=== PATIENT | male | born 1935 | race Caucasian/White ===

== ENCOUNTER 2019-06-28 12:10 | Inpatient (IN) | payer OTHER, MEDICAID, BC ==
[~2019-06-28] VITALS: Ht 162.6 cm; Wt 69.4 kg
[2019-06-28 12:47] LABS: BASOPHILS # (AUTO) 0.1 K/uL (0.0-0.2); BASOPHILS % (AUTO) 1.2 % (0.0-2.0); EOSINOPHILS # (AUTO) 0.2 K/uL (0.0-0.4); EOSINOPHILS % (AUTO) 3.3 % (0.0-4.0); HEMATOCRIT 41.1 % (36-54); HEMOGLOBIN 13.8 g/dL (14.0-18.0); LYMPHOCYTES # (AUTO) 1.1 K/uL (1.0-5.5); LYMPHOCYTES % (AUTO) 24.4 % (20.5-51.5); MEAN CORPUSCULAR HEMOGLOBIN 31 pg (27-31); MEAN CORPUSCULAR HGB CONC 34 % (32-36); MEAN CORPUSCULAR VOLUME 93 fL (79.0-98.0); MONOCYTES # (AUTO) 0.3 K/uL (0.0-1.0); NEUTROPHILS % (AUTO) 65.1 % (40.0-70.0); PLATELET COUNT (AUTO) 194 K/uL (130-430); RED CELL DISTRIBUTION WIDTH 14.4 % (9.0-15.0); WHITE BLOOD COUNT (AUTO) 4.6 K/uL (4.8-10.8)
[2019-06-28 13:00] LABS: ANION GAP 5 (5-15); CALCIUM 8.4 mg/dL (8.4-11.0); CHLORIDE 103 mmol/L (98-107); CREATININE 0.87 mg/dL (0.55-1.30); GLUCOSE 138 mg/dL (70-99); POTASSIUM 3.8 mmol/L (3.5-5.1); SODIUM SERUM 140 mmol/L (136-145); UREA NITROGEN, BLOOD 8 mg/dL (8-21)
[2019-06-28 13:06] LABS: ALANINE AMINOTRANSFERASE 41 U/L (12-78); ALBUMIN 3.2 g/dL (3.4-4.8); ASPARTATE AMINOTRANSFERASE 22 U/L (10-37); TOTAL BILIRUBIN 0.5 mg/dL (0.0-1.0)
[2019-06-28 13:32] VITALS: BP_SYST 103
--- NOTE | 2019-06-28 13:43 | NUR ---
Patient triaged and placed in waiting room. VSS and patient appears in no acute distress at this time. Accompanied by daughters, awaiting available bed, and MD notified of need for MSE.
--- NOTE | 2019-06-28 14:14 | NUR ---
Patient to ER bed 03 to gown for evaluation. Side rails up.
--- NOTE | 2019-06-28 14:20 | NUR ---
JAIR Bobby at bedside examining patient.
--- NOTE | 2019-06-28 14:28 | NUR ---
Patient is awake, alert, and oriented x1. His daughters are at bedside. Per daughters, the patient has not had a BM in 2 days and his increased falls. Dr. Boyce directed them to bring him to the ER. Patient does not appear in any distress at this time.
[2019-06-28] MEDS ORDERED: LACTULOSE 20 GM/30 ML UDC PO ONE (14:30)
[2019-06-28] MEDS ORDERED: NACL 0.9% 1,000 ML IV ONE ×2 (14:30→15:45)
--- NOTE | 2019-06-28 14:53 | NUR ---
Patient transported to radiology via gurney, accompanied by urinalysis technician.
[2019-06-28 15:06] LABS: BILIRUBIN,URINE NEGATIVE (NEGATIVE); BLOOD, URINE NEGATIVE (NEGATIVE); CLARITY/URINE CLEAR (CLEAR); COLOR,URINE YELLOW (YELLOW); GLUCOSE,URINE NEGATIVE (NEGATIVE); KETONES,URINE NEGATIVE (NEGATIVE); LEUKOCYTE ESTERASE ,URINE NEGATIVE (NEGATIVE); NITRITE, URINE NEGATIVE (NEGATIVE); PROTEIN URINE NEGATIVE (NEGATIVE); UROBILINOGEN,URINE 0.2 (0.2-1.0)
[2019-06-28] MEDS ORDERED: ATEN-41 PO (15:18)
[2019-06-28] MEDS ORDERED: FURO-150 PO (15:18)
[2019-06-28] MEDS ORDERED: TAMS-11 PO (15:18)
[2019-06-28] MEDS ORDERED: DONE10TA44 PO (15:18)
[2019-06-28] MEDS ORDERED: MEMA28CA5 PO (15:18)
--- NOTE | 2019-06-28 15:21 | NUR ---
Medication reconciliation completed with information provided by daughters. Any prior medication reconciliation on file was reviewed and corrected.
--- NOTE | 2019-06-28 15:56 | NUR ---
Patient will be admitted to care of Dr. Boyce. Admitted to medsurg unit. Will go to room 104A. Belongings list completed. Complete and up to date summary report printed. SBAR report to be given at bedside with opportunity for questions.
--- NOTE | 2019-06-28 16:02 | NUR ---
Patient transported to radiology via gurney, accompanied by career guidance technician.
--- NOTE | 2019-06-28 16:11 | NUR ---
Returned from radiology, back to [facility].
--- NOTE | 2019-06-28 16:14 | NUR ---
Transfer to [facility]. EMT present. IV present no signs or symptoms of infiltration.
[2019-06-28 16:20] VITALS: BP_SYST 145
--- NOTE | 2019-06-28 16:20 | NUR ---
Admission: received from ER on a gurney accompanied by family with the diagnosis of Recurrent falls, Abdominal pain, fecal Impaction, Severe Neuropathy. patient is confused.
--- NOTE | 2019-06-28 16:30 | NUR ---
CONSULTATION PAGED/CALLED Reason for Consultation: RECURRENT FALLS Person Who was Notified: GISSELLE Consulting Physician: Proof Coins Inspector Specialty: Ordering Physician:
--- NOTE | 2019-06-28 16:30 | NUR ---
CONSULTATION PAGED/CALLED Reason for Consultation: CONSTIPATION Person Who was Notified: CALLUM Consulting Physician: Stopperer Assembler SpecialtY: Ordering Physician:
--- NOTE | 2019-06-28 17:20 | NUR ---
Received pt in bed, pt is awake but confused. able to vearbalize name but unable to say where he is at and date. pt is attempting to get out of bed and pulled out his iv access. Informed discharge coordinator that pt may be needing a sitter or needs to be restrained for safety as reorientation and telling pt not to pull out his iv and not to try to get out of bed for his safety did not work.
[2019-06-28] MEDS ORDERED: LORazepam 2 MG/ML VIAL IVP PRN (17:30)
[2019-06-28] MEDS: D5/0.45 NS 1,000 ML IV SCH (18:03)
--- NOTE | 2019-06-28 19:20 | NUR ---
Closing notes, Pt endorsed to night nurse amy. pt on restraint now, pt trying to pull out his restraint.
--- NOTE | 2019-06-28 19:30 | NUR ---
Initial Notes Received handoff report from offgoing nurse at the bedside. Patient is resting comfortably in bed, currently covered in bowel incontinence. Will provide incontinence care. No SOB, no acute distress, no complaints of pain. IVF infusing per MD order, see eMAR for details. Bed is locked, lowest position, 2x side rails up, bed alarm is on. Call light is within reach. Encouraged patient to call for assistance. Will continue with plan of care.
[2019-06-28 20:00] VITALS: BP_SYST 144
--- NOTE | 2019-06-28 20:00 | NUR ---
Incontinence care provided to the patient. Patient is now clean and dry, resting comfortably in bed.
[2019-06-28] MEDS: LACTULOSE 20 GM/30 ML UDC PO SCH (20:21)
--- NOTE | 2019-06-28 22:13 | NUR ---
Patient restless in bed, moving around a lot. Repositioned the patient for comfort. Now resting comfortably in bed.
--- NOTE | 2019-06-29 00:32 | NUR ---
Patient restless, kicked legs over the side rails. Assisted patient to reposition in the bed for comfort. Bed locked, lowest position, 2x side rails up, bed alarm is on. Call light within reach. Encouraged to call for assistance.
[2019-06-29 00:36] VITALS: BP_SYST 158
--- NOTE | 2019-06-29 02:35 | NUR ---
Patient removed all blankets and gown. Assisted patient to put clothing back on, and covered patient with blanket. Repositioned for comfort. Now resting comfortably in bed. Call light within reach. Encouraged patient to call for assistance.
--- NOTE | 2019-06-29 04:30 | NUR ---
Patient restless, kicking legs in bed. Repositioned patient for comfort. Now resting comfortably in bed.
--- NOTE | 2019-06-29 06:51 | NUR ---
Nutrition Update Armando Scale 17 noted. Pt admitted for Recurrent falls, Abd pain, fecal impaction Diet: no diet order BMI: 26.3 kg/m2 RD to follow per nutrition care standards.
--- NOTE | 2019-06-29 06:51 | NUR ---
Closing Notes Patient is resting comfortably in bed, eyes closed. Breathing even and unlabored with visible chest rise and fall noted. No SOB, no acute distress, no signs of pain or facial grimacing noted. IVF infusing per MD order, see eMAR for details. Bed is locked, lowest position, 2x side rails up, bed alarm is on. Call light is within reach. Fall and safety precautions maintained. All needs have been met during this shift. Will endorse care to oncoming dayshift nurse.
[2019-06-29 08:00] VITALS: BP_SYST 167
[2019-06-29] MEDS: DONEPEZIL HCL 5 MG TABLET (ARICEPT) PO SCH (10:16)
[2019-06-29] MEDS: ATENOLOL 25 MG TABLET(TENORMIN) PO SCH (10:17)
[2019-06-29] MEDS: LACTULOSE 20 GM/30 ML UDC PO SCH ×2 (10:18→22:47)
[2019-06-29] MEDS: FUROSEMIDE 20 MG TABLET PO SCH (10:18)
[2019-06-29 11:11] VITALS: BP_SYST 137
[2019-06-29] MEDS: D5/0.45 NS 1,000 ML IV SCH ×2 (13:23→22:48)
--- NOTE | 2019-06-29 15:00 | NUR ---
TAPE WATER ENEMA WAS GIVEN AT 14:30 . MOVED HUGE AMOUNT OF PASTY BM AT 15:00 , COLOR IN BROWN, ABDOMEN SOFT.
[2019-06-29 15:29] VITALS: BP_SYST 149
[2019-06-29 20:00] VITALS: BP_SYST 144
--- NOTE | 2019-06-29 22:25 | NUR ---
SOFT WRIST Restraints in place frequent monitor for safety PATIENT FALL RISK does pull on MEDICAL LINES TUBES .
[2019-06-29] MEDS: TAMSULOSIN HCL 0.4 MG CAP PO SCH (22:47)
[2019-06-29 23:52] VITALS: BP_SYST 147
--- NOTE | 2019-06-30 | NUR ---
Patient incontinent HOB kept elevated SAFETY MEASURES EFFECTIVE FALL PRECAUTION HX OF / .
--- NOTE | 2019-06-30 00:48 | NUR ---
Turning Repositioning off loading with pillows comfort measures implemented patient awake DOES PULL OUT MEDICAL LINES / .
--- NOTE | 2019-06-30 05:19 | NUR ---
BED SIDE CARE BED BATH Patient incontinent of B&B off loading with pillows SAFETY MEASURES EFFECTIVE .
--- NOTE | 2019-06-30 07:53 | NUR ---
INITIAL NOTE PT RESTING IN BED, NO ACUTE DISTRESS NOTED, BREATHING EVEN AND UNLABORED. IVF IN FUSING WELL. SOFT WRIST RESTRAINTS IN PLACE. CALL LIGHT WITHIN REACH, BED IN LOW AND LOCKED POSITION WITH BED ALARM ON.
[2019-06-30] MEDS: DONEPEZIL HCL 5 MG TABLET (ARICEPT) PO SCH (08:02)
[2019-06-30] MEDS: LACTULOSE 20 GM/30 ML UDC PO SCH ×2 (08:02→22:04)
[2019-06-30] MEDS: ATENOLOL 25 MG TABLET(TENORMIN) PO SCH (08:02)
[2019-06-30] MEDS: FUROSEMIDE 20 MG TABLET PO SCH (08:03)
--- NOTE | 2019-06-30 10:00 | NUR ---
RN ROUNDS PT RESTING IN BED, NO ACUTE DISTRESS NOTED, BREATHING EVEN AND UNLABORED.
--- NOTE | 2019-06-30 12:00 | NUR ---
RN ROUNDS PT IN HIGH FOWLERS. FAMILY AT BEDSIDE FEEDING PT. NO ACUTE DISTRESS NOTED.
[2019-06-30 12:46] VITALS: BP_SYST 158
--- NOTE | 2019-06-30 14:00 | NUR ---
RN ROUNDS PT RESTING IN BED, NO ACUTE DISTRESS NOTED, BREATHING EVEN AND UNLABORED.
--- NOTE | 2019-06-30 16:00 | NUR ---
RN ROUNDS REPOSITIONED PT FOR COMFORT. PT TOLERATED WELL. NO ACUTE DISTRESS NOTED.
[2019-06-30 16:51] VITALS: BP_SYST 144
--- NOTE | 2019-06-30 17:00 | NUR ---
assumed care, pt in bed, resting. No acute distress noted. on bilateral soft wrist restraints.
--- NOTE | 2019-06-30 18:40 | NUR ---
notes- In bed, awake. no acute distress noted. on soft wrist restraint, circulation intact. Will endorse
--- NOTE | 2019-06-30 19:10 | NUR ---
OPENING NOTES Receive report from morning shift nurse. Patient awake, AOx1, cooperative, able to follow simple commands, confusion is noted. No signs of respiratory distress and discomfort noted. On Room air with O2 sat of 100%, tolerating well. IVF infusing well, patency noted. Call light within reach. Safety precautions in place. Bed locked and in lowest position. Bed alarm on. 3 side rails up, close to nursing station. Will continue to monitor patient.
[2019-06-30 20:00] VITALS: BP_SYST 149
[2019-06-30] MEDS: TAMSULOSIN HCL 0.4 MG CAP PO SCH (22:04)
--- NOTE | 2019-06-30 22:04 | NUR ---
MED PASS Due medication given at this time, patient tolerated well. No signs of respiratory distress and discomfort noted. Denies pain and discomfort at this time. Safety precautions in place. Will continue to monitor patient.
--- NOTE | 2019-06-30 23:40 | NUR ---
RN ROUNDS Patient asleep at this time. No signs of respiratory distress and discomfort noted. Breathing even and unlabored. IVF infusing well, patency noted. Safety precautions in place. Bed alarm on. Call light within reach. Will continue to monitor patient.
[2019-07-01] MEDS: D5/0.45 NS 1,000 ML IV SCH (04:52)
--- NOTE | 2019-07-01 07:00 | NUR ---
CLOSING NOTES Patient asleep at this time, AOx1. No signs of respiratory distress and discomfort noted. On Room air with O2 sat of 100%, tolerating well. IVF infusing well, patency noted. Call light within reach. Safety precautions in place. Bed locked and in lowest position. Bed alarm on. 3 side rails up, close to nursing station. Will continue to monitor patient.
[2019-07-01 08:00] VITALS: BP_SYST 130
--- NOTE | 2019-07-01 08:00 | NUR ---
initial notes rec patient awake but confused . resp easy and unlabored. no sob noted. bed to the lowest position and side rails up and locked. pt close to the nurses station. call light within reached.
[2019-07-01] MEDS: LACTULOSE 20 GM/30 ML UDC PO SCH (09:19)
[2019-07-01] MEDS: ATENOLOL 25 MG TABLET(TENORMIN) PO SCH (09:20)
[2019-07-01] MEDS: FUROSEMIDE 20 MG TABLET PO SCH (09:21)
[2019-07-01] MEDS: DONEPEZIL HCL 5 MG TABLET (ARICEPT) PO SCH (09:22)
--- NOTE | 2019-07-01 10:30 | NUR ---
rounds due meds given and pepe well. resting comfortably and sleeps at intervals.
--- NOTE | 2019-07-01 10:50 | NUR ---
DC PLANNING Called & spoke wendie Persaud, ph [phone], to discuss dc plan. Has spoken wendie Lim, would like SNF for rehab. Informed had choices, states already knows which SNF she prefers. Would like pt to go to [facility] in [place], has already spoken with Edgardo @ [facility]. Has no 2nd choice, states to call her if not accepted/no beds. Addendum: 07/01/19 at 1604 by An Alvarenga RN Per Marii bernabener, pt accepted at [facility] room 12A, ambulance picking up @ 6pm. Spoke wendie Persaud & other family @ bedside & updated. All in agreement w roxanna today.
--- NOTE | 2019-07-01 11:45 | NUR ---
Discharge Planning: DCP faxed pt referral to [facility] p [phone]) DCP to follow up. Addendum: 07/01/19 at 1338 by Marii Oswald DP Per Maria Esther at [facility] p [phone]) patient accepted to [facility], DCP made CM aware. Addendum: 07/01/19 at 1555 by Marii Oswald DP [facility] p [phone]) 12A, [facility] ([phone]) 6:00pm P/U. Patient packet taken to nurse station.
[2019-07-01 12:29] VITALS: BP_SYST 137
[2019-07-01 16:32] VITALS: BP_SYST 131
[2019-07-01 17:31] VITALS: BP_SYST 131
--- NOTE | 2019-07-01 18:10 | NUR ---
closing notes pt left for [facility]. report given to jami shields at the said place. family at bedside with patient. id band and ivl was removed. pt stablr and needs attended. no sob noted.
--- NOTE | 2019-07-04 13:54 | NUR ---
PHYSICAL THERAPY CO-SIGN The Physical Therapy Progress Notes documented by Screw Remover have been reviewed. Reviewed/Co-Signed by: Jian Bermudez, PT Documentation Done by: SHELBIE KHAN PTA Addendum: 07/04/19 at 1355 by Jian Bermudez PT Amended: Links added.
== END 2019-07-01 18:10 | DRG 388 ==
LOC: SED 12:10 → SMU 15:51
PROVIDERS: ADMIT Internal Medicine; ATTEND Internal Medicine
DX: K56.41 Fecal impaction (principal); G92 Toxic encephalopathy; R64 Cachexia; E86.0 Dehydration; F02.80 Dementia in other diseases classified elsewhere, unspecified severity, without behavioral disturbance, psychotic disturbance, mood disturbance, and anxiety; G30.9 Alzheimer's disease, unspecified; I10 Essential (primary) hypertension; R29.6 Repeated falls; Z79.899 Other long term (current) drug therapy
CPT/HCPCS: 36415; 70450-TC; 71045; 71250-TC; 74018; 80053; 81003; 83605; 84484; 85025; 87040-TC; 87086; 93005; 96360; 96361; 97110-GP; 97530-GP; 99285; J7030

== ENCOUNTER 2019-07-26 14:55 | Inpatient (IN) | payer OTHER, MEDICAID ==
[~2019-07-26] VITALS: Ht 162.6 cm; Wt 64.9 kg
[~2019-07-26 14:55] MED LIST: ATEN-41 PO; DONE10TA44 PO; FURO-150 PO; MEMA28CA5 PO; TAMS-11 PO
[2019-07-26 15:00] VITALS: BP_SYST 126
[2019-07-26 16:19] LABS: BASOPHILS # (AUTO) 0.1 K/uL (0.0-0.2); BASOPHILS % (AUTO) 0.4 % (0.0-2.0); EOSINOPHILS # (AUTO) 0.1 K/uL (0.0-0.4); EOSINOPHILS % (AUTO) 0.3 % (0.0-4.0); HEMATOCRIT 38.4 % (36-54); HEMOGLOBIN 12.7 g/dL (14.0-18.0); LYMPHOCYTES # (AUTO) 1.5 K/uL (1.0-5.5); LYMPHOCYTES % (AUTO) 9.6 % (20.5-51.5); MEAN CORPUSCULAR HEMOGLOBIN 31 pg (27-31); MEAN CORPUSCULAR HGB CONC 33 % (32-36); MEAN CORPUSCULAR VOLUME 93 fL (79.0-98.0); MONOCYTES # (AUTO) 1.1 K/uL (0.0-1.0); MONOCYTES % (AUTO) 7.2 % (1.7-9.3); NEUTROPHILS % (AUTO) 82.5 % (40.0-70.0); PLATELET COUNT (AUTO) 196 K/uL (130-430); RED BLOOD CELL COUNT(AUTO) 4.11 MIL/uL (4.2-6.2); RED CELL DISTRIBUTION WIDTH 13.8 % (9.0-15.0); WHITE BLOOD COUNT (AUTO) 15.8 K/uL (4.8-10.8)
[2019-07-26 16:42] LABS: ANION GAP 8 (5-15); CALCIUM 8.1 mg/dL (8.4-11.0); CHLORIDE 104 mmol/L (98-107); CREATININE 1.14 mg/dL (0.55-1.30); GLUCOSE 112 mg/dL (70-99); POTASSIUM 3.7 mmol/L (3.5-5.1); SODIUM SERUM 142 mmol/L (136-145); UREA NITROGEN, BLOOD 16 mg/dL (8-21)
[2019-07-26 16:46] LABS: PROTHROMBIN TIME 10.2 SECS (9.5-12.5)
[2019-07-26 16:50] LABS: ALANINE AMINOTRANSFERASE 29 U/L (12-78); ALBUMIN 2.8 g/dL (3.4-4.8); ASPARTATE AMINOTRANSFERASE 37 U/L (10-37); TOTAL BILIRUBIN 0.5 mg/dL (0.0-1.0)
[2019-07-26] MEDS ORDERED: cefTRIAXone 1 GM IVPB PREMIX 50 ML IV ONE (18:30)
[2019-07-26] MEDS ORDERED: NACL 0.9% 1,000 ML IV ONE (18:30)
[2019-07-26 20:30] VITALS: BP_SYST 123
[2019-07-26] MEDS ORDERED: PIPERACILLIN/TAZOBACTAM 3.375 GM/VIAL (ZOSYN) IV ONE (21:07)
[2019-07-26] MEDS: PIPERACILLIN/TAZO 3.375/DEX-IS 50 ML IV SCH (22:24)
[2019-07-26] MEDS: D5/0.45 NS 1,000 ML IV SCH (22:24)
[2019-07-27] VITALS: BP_SYST 132
[2019-07-27] MEDS: D5/0.45 NS 1,000 ML IV SCH ×7 (02:31→22:31)
[2019-07-27] MEDS: PIPERACILLIN/TAZO 3.375/DEX-IS 50 ML IV SCH ×3 (05:10→22:52)
[2019-07-27 07:35] LABS: AMYLASE 85 U/L (0-100); LIPASE 199 U/L (73-393)
[2019-07-27 07:43] LABS: INR 1.1 (0.80-1.20)
[2019-07-27 08:35] VITALS: BP_SYST 118
[2019-07-27 12:45] VITALS: BP_SYST 107
[2019-07-27 16:44] VITALS: BP_SYST 110
[2019-07-27 20:00] VITALS: BP_SYST 124
[2019-07-27] MEDS: TAMSULOSIN HCL 0.4 MG CAP PO SCH (22:52)
[2019-07-28 00:13] VITALS: BP_SYST 119
[2019-07-28] MEDS: D5/0.45 NS 1,000 ML IV SCH ×5 (03:43→22:31)
[2019-07-28] MEDS: PIPERACILLIN/TAZO 3.375/DEX-IS 50 ML IV SCH ×3 (05:44→22:26)
[2019-07-28 06:36] LABS: BASOPHILS # (AUTO) 0.1 K/uL (0.0-0.2); BASOPHILS % (AUTO) 0.5 % (0.0-2.0); EOSINOPHILS # (AUTO) 0.3 K/uL (0.0-0.4); HEMATOCRIT 35.6 % (36-54); LYMPHOCYTES # (AUTO) 2.1 K/uL (1.0-5.5); LYMPHOCYTES % (AUTO) 19.1 % (20.5-51.5); MEAN CORPUSCULAR HEMOGLOBIN 32 pg (27-31); MEAN CORPUSCULAR HGB CONC 34 % (32-36); MEAN CORPUSCULAR VOLUME 94 fL (79.0-98.0); MONOCYTES # (AUTO) 0.8 K/uL (0.0-1.0); NEUTROPHILS # (AUTO) 7.6 K/uL (1.8-7.7); NEUTROPHILS % (AUTO) 70.4 % (40.0-70.0); PLATELET COUNT (AUTO) 171 K/uL (130-430); RED BLOOD CELL COUNT(AUTO) 3.79 MIL/uL (4.2-6.2); RED CELL DISTRIBUTION WIDTH 14.2 % (9.0-15.0); WHITE BLOOD COUNT (AUTO) 10.8 K/uL (4.8-10.8)
[2019-07-28 06:37] LABS: ALANINE AMINOTRANSFERASE 28 U/L (12-78); ALBUMIN 2.5 g/dL (3.4-4.8); ANION GAP 3 (5-15); ASPARTATE AMINOTRANSFERASE 28 U/L (10-37); CALCIUM 7.8 mg/dL (8.4-11.0); CHLORIDE 107 mmol/L (98-107); CREATININE 0.98 mg/dL (0.55-1.30); GLUCOSE 123 mg/dL (70-99); POTASSIUM 3.5 mmol/L (3.5-5.1); SODIUM SERUM 138 mmol/L (136-145); TOTAL BILIRUBIN 0.5 mg/dL (0.0-1.0); UREA NITROGEN, BLOOD 9 mg/dL (8-21)
[2019-07-28 08:45] VITALS: BP_SYST 112
[2019-07-28] MEDS: DONEPEZIL HCL 5 MG TABLET (ARICEPT) PO SCH (09:56)
[2019-07-28] MEDS: ATENOLOL 25 MG TABLET(TENORMIN) PO SCH (09:57)
[2019-07-28] MEDS: FUROSEMIDE 20 MG TABLET PO SCH (09:57)
[2019-07-28 12:36] VITALS: BP_SYST 129
[2019-07-28 16:30] VITALS: BP_SYST 136
[2019-07-28 20:00] VITALS: BP_SYST 145
[2019-07-28] MEDS: TAMSULOSIN HCL 0.4 MG CAP PO SCH (22:27)
[2019-07-28 23:53] VITALS: BP_SYST 151
[2019-07-29] MEDS: D5/0.45 NS 1,000 ML IV SCH ×7 (02:18→21:38)
[2019-07-29] MEDS: PIPERACILLIN/TAZO 3.375/DEX-IS 50 ML IV SCH ×3 (05:53→21:37)
[2019-07-29 08:17] VITALS: BP_SYST 152
[2019-07-29] MEDS: FUROSEMIDE 20 MG TABLET PO SCH (08:28)
[2019-07-29] MEDS: ATENOLOL 25 MG TABLET(TENORMIN) PO SCH (08:28)
[2019-07-29] MEDS: DONEPEZIL HCL 5 MG TABLET (ARICEPT) PO SCH (08:28)
[2019-07-29 12:35] VITALS: BP_SYST 156
[2019-07-29 16:35] VITALS: BP_SYST 145
[2019-07-29 20:00] VITALS: BP_SYST 146
[2019-07-29] MEDS: TAMSULOSIN HCL 0.4 MG CAP PO SCH (21:37)
[2019-07-30] VITALS: BP_SYST 142
[2019-07-30] MEDS: D5/0.45 NS 1,000 ML IV SCH ×4 (02:31→14:31)
[2019-07-30] MEDS: PIPERACILLIN/TAZO 3.375/DEX-IS 50 ML IV SCH (05:11)
[2019-07-30 07:42] VITALS: BP_SYST 148
[2019-07-30] MEDS: DONEPEZIL HCL 5 MG TABLET (ARICEPT) PO SCH (07:58)
[2019-07-30] MEDS: FUROSEMIDE 20 MG TABLET PO SCH (07:59)
[2019-07-30] MEDS: ATENOLOL 25 MG TABLET(TENORMIN) PO SCH (07:59)
[2019-07-30] MEDS ORDERED: LEVOFLOXACIN 250 MG/D5W 50 ML IV SCH (09:00)
[2019-07-30 12:49] VITALS: BP_SYST 112
[2019-07-30 16:32] VITALS: BP_SYST 148
[2019-07-30 17:28] VITALS: BP_SYST 122
== END 2019-07-30 19:10 | DRG 871 ==
LOC: SED 14:55 → SMU 18:31
PROVIDERS: ADMIT Internal Medicine; ATTEND Internal Medicine
DX: A41.9 Sepsis, unspecified organism (principal); J18.9 Pneumonia, unspecified organism; G93.40 Encephalopathy, unspecified; E87.2 Acidosis; F02.80 Dementia in other diseases classified elsewhere, unspecified severity, without behavioral disturbance, psychotic disturbance, mood disturbance, and anxiety; G30.9 Alzheimer's disease, unspecified; I10 Essential (primary) hypertension; N40.0 Benign prostatic hyperplasia without lower urinary tract symptoms; Z79.899 Other long term (current) drug therapy
CPT/HCPCS: 36415; 71045; 80053; 82150-TC; 83605; 83690-TC; 83880; 84484; 85025; 85610-TC; 85730-TC; 86710; 87040-TC; 87081; 87086; 93005; 96365; 99285; J0696; J1956; J2543; J7030

== ENCOUNTER 2020-03-19 15:31 | Inpatient (IN) | payer OTHER, BC, SELFPAY ==
[~2020-03-19] VITALS: Ht 162.6 cm; Wt 60.3 kg
[2020-03-19 15:33] VITALS: BP_SYST 106
[2020-03-19] MEDS ORDERED: cefTRIAXone 1 GM IVPB PREMIX 50 ML IV ONE (16:15)
[2020-03-19] MEDS ORDERED: NS 1000 ML IV.SOLN IV ONE (16:15)
[2020-03-19 16:44] LABS: BASOPHILS # (AUTO) 0.1 K/uL (0.0-0.2); BASOPHILS % (AUTO) 0.6 % (0.0-2.0); EOSINOPHILS # (AUTO) 0.1 K/uL (0.0-0.4); EOSINOPHILS % (AUTO) 0.4 % (0.0-4.0); HEMATOCRIT 39.2 % (36-54); LYMPHOCYTES # (AUTO) 0.9 K/uL (1.0-5.5); LYMPHOCYTES % (AUTO) 5.8 % (20.5-51.5); MEAN CORPUSCULAR HEMOGLOBIN 30 pg (27-31); MEAN CORPUSCULAR HGB CONC 33 % (32-36); MEAN CORPUSCULAR VOLUME 90 fL (79.0-98.0); MONOCYTES # (AUTO) 0.7 K/uL (0.0-1.0); MONOCYTES % (AUTO) 4.3 % (1.7-9.3); NEUTROPHILS # (AUTO) 14.3 K/uL (1.8-7.7); NEUTROPHILS % (AUTO) 88.9 % (40.0-70.0); PLATELET COUNT (AUTO) 145 K/uL (130-430); RED BLOOD CELL COUNT(AUTO) 4.38 MIL/uL (4.2-6.2); RED CELL DISTRIBUTION WIDTH 14.7 % (9.0-15.0)
[2020-03-19 16:45] LABS: BILIRUBIN,URINE NEGATIVE (NEGATIVE); BLOOD, URINE NEGATIVE (NEGATIVE); CLARITY/URINE SL CLOUDY (CLEAR); COLOR,URINE YELLOW (YELLOW); GLUCOSE,URINE NEGATIVE (NEGATIVE); KETONES,URINE NEGATIVE (NEGATIVE); LEUKOCYTE ESTERASE ,URINE NEGATIVE (NEGATIVE); NITRITE, URINE NEGATIVE (NEGATIVE); PH,URINE 5.5 (5.0-8.0); PROTEIN URINE 2+ (NEGATIVE)
[2020-03-19 17:00] LABS: ANION GAP 3 (5-15); CALCIUM 8.7 mg/dL (8.4-11.0); CHLORIDE 108 mmol/L (98-107); CREATININE 1.29 mg/dL (0.55-1.30); GLUCOSE 219 mg/dL (70-99); POTASSIUM 3.6 mmol/L (3.5-5.1); SODIUM SERUM 141 mmol/L (136-145); UREA NITROGEN, BLOOD 23 mg/dL (8-21)
[2020-03-19 17:04] LABS: BACTERIA,URINE None Seen /HPF (None Seen); RBC,URINE NONE SEEN /HPF (0-3); WBC,URINE NONE SEEN /HPF (0-3)
[2020-03-19 17:11] LABS: ALANINE AMINOTRANSFERASE 19 U/L (12-78); ALBUMIN 2.5 g/dL (3.4-4.8); ASPARTATE AMINOTRANSFERASE 14 U/L (10-37); TOTAL BILIRUBIN 0.6 mg/dL (0.0-1.0)
[2020-03-19] MEDS ORDERED: ASCO500T10 PO (17:37)
[2020-03-19] MEDS ORDERED: VITD2000 PO (17:37)
[2020-03-19] MEDS ORDERED: SENN8.6T19 PO (17:37)
[2020-03-19] MEDS ORDERED: DONE10TA44 PO (17:37)
[2020-03-19] MEDS ORDERED: TAMS-11 PO (17:37)
[2020-03-19] MEDS ORDERED: ZINC220T4 PO (17:37)
[2020-03-19] MEDS ORDERED: FURO-150 PO (17:37)
[2020-03-19] MEDS ORDERED: CYAN100020 SL (17:37)
[2020-03-19] MEDS ORDERED: ATEN-41 PO (17:37)
[2020-03-19] MEDS ORDERED: D5/0.45 NS 1,000 ML IV SCH (18:13)
[2020-03-19 20:54] VITALS: BP_SYST 148
[2020-03-20] VITALS: BP_SYST 151
[2020-03-20] MEDS: AZITHROMYCIN 500 MG in NS 250 ML IV ONE ×2 (01:30→02:46)
[2020-03-20] MEDS: AZITHROMYCIN 500 MG/VIAL (ZITHROMAX) IV ONE ×2 (02:07→02:46)
[2020-03-20] MEDS: 0.45% NACL 1,000 ML IV SCH ×2 (02:30→21:21)
[2020-03-20] MEDS: AZITHROMYCIN 250 MG in NS 250 ML IV SCH (02:30)
[2020-03-20 08:52] VITALS: BP_SYST 117
[2020-03-20] MEDS ORDERED: CHOLECALCIFEROL (VITAMIN D3) 2,000 UNIT TABLET PO SCH (10:45)
[2020-03-20] MEDS ORDERED: CHOLECALCIFEROL (VITAMIN D3) 2,000 UNIT TABLET PO ONE (10:45)
[2020-03-20] MEDS ORDERED: ASCORBIC ACID 500 MG TABLET PO ONE (10:45)
[2020-03-20] MEDS ORDERED: ATENOLOL 25 MG TABLET(TENORMIN) PO ONE (10:45)
[2020-03-20] MEDS ORDERED: DONEPEZIL HCL 5 MG TABLET (ARICEPT) PO ONE (10:45)
[2020-03-20] MEDS ORDERED: FUROSEMIDE 20 MG TABLET PO ONE (11:00)
[2020-03-20] MEDS ORDERED: CYANOCOBALAMIN 1000 mCg TABLET SL ONE (11:00)
[2020-03-20 12:00] VITALS: BP_SYST 123
[2020-03-20] MEDS: cefTRIAXone 1 GM IVPB PREMIX 50 ML IV SCH ×2 (15:00→17:00)
[2020-03-20 16:00] VITALS: BP_SYST 127
[2020-03-20 20:00] VITALS: BP_SYST 132
[2020-03-20] MEDS: ASCORBIC ACID 500 MG TABLET PO SCH (20:39)
[2020-03-20] MEDS: TAMSULOSIN HCL 0.4 MG CAP PO SCH (20:39)
[2020-03-20] MEDS: DONEPEZIL HCL 5 MG TABLET (ARICEPT) PO SCH (20:39)
[2020-03-20] MEDS: SENNOSIDES 8.6 MG TABLET PO SCH (20:39)
[2020-03-20] MEDS: CHOLECALCIFEROL (VITAMIN D3) 2,000 UNIT TABLET PO SCH (20:39)
[2020-03-21] VITALS: BP_SYST 137
[2020-03-21] MEDS: AZITHROMYCIN 250 MG in NS 250 ML IV SCH ×2 (01:35→01:43)
[2020-03-21] MEDS ORDERED: AZITHROMYCIN 500 MG/VIAL (ZITHROMAX) IV ONE (01:58)
[2020-03-21 04:00] VITALS: BP_SYST 136
[2020-03-21 07:50] VITALS: BP_SYST 137
[2020-03-21] MEDS: DONEPEZIL HCL 5 MG TABLET (ARICEPT) PO SCH ×2 (08:36→21:16)
[2020-03-21] MEDS ORDERED: FUROSEMIDE 20 MG TABLET PO SCH (09:00)
[2020-03-21] MEDS: CHOLECALCIFEROL (VITAMIN D3) 2,000 UNIT TABLET PO SCH ×2 (09:20→21:16)
[2020-03-21] MEDS: ASCORBIC ACID 500 MG TABLET PO SCH ×2 (09:20→21:16)
[2020-03-21] MEDS: CYANOCOBALAMIN 1000 mCg TABLET SL SCH (09:20)
[2020-03-21] MEDS: ATENOLOL 25 MG TABLET(TENORMIN) PO SCH (09:20)
[2020-03-21] MEDS: ENOXAPARIN SODIUM 40 MG/0.4 ML SYRINGE SUBCUT SCH (09:23)
[2020-03-21 12:00] VITALS: BP_SYST 133
[2020-03-21] MEDS: cefTRIAXone 1 GM IVPB PREMIX 50 ML IV SCH (15:45)
[2020-03-21 16:00] VITALS: BP_SYST 132
[2020-03-21] MEDS: TAMSULOSIN HCL 0.4 MG CAP PO SCH (21:16)
[2020-03-21] MEDS: SENNOSIDES 8.6 MG TABLET PO SCH (21:16)
[2020-03-21 22:00] VITALS: BP_SYST 151
[2020-03-21] MEDS: 0.45% NACL 1,000 ML IV SCH (22:07)
[2020-03-22] VITALS: BP_SYST 145
[2020-03-22 06:46] LABS: BASOPHILS % (AUTO) 0.9 % (0.0-2.0); EOSINOPHILS # (AUTO) 0.3 K/uL (0.0-0.4); EOSINOPHILS % (AUTO) 6.6 % (0.0-4.0); HEMATOCRIT 38.1 % (36-54); HEMOGLOBIN 13.1 g/dL (14.0-18.0); LYMPHOCYTES # (AUTO) 1.2 K/uL (1.0-5.5); LYMPHOCYTES % (AUTO) 22.7 % (20.5-51.5); MEAN CORPUSCULAR HEMOGLOBIN 30 pg (27-31); MEAN CORPUSCULAR HGB CONC 34 % (32-36); MEAN CORPUSCULAR VOLUME 88 fL (79.0-98.0); MONOCYTES # (AUTO) 0.4 K/uL (0.0-1.0); MONOCYTES % (AUTO) 8.5 % (1.7-9.3); NEUTROPHILS # (AUTO) 3.1 K/uL (1.8-7.7); NEUTROPHILS % (AUTO) 61.3 % (40.0-70.0); PLATELET COUNT (AUTO) 173 K/uL (130-430); RED BLOOD CELL COUNT(AUTO) 4.33 MIL/uL (4.2-6.2); RED CELL DISTRIBUTION WIDTH 14.4 % (9.0-15.0); WHITE BLOOD COUNT (AUTO) 5.1 K/uL (4.8-10.8)
[2020-03-22 07:05] LABS: ANION GAP 7 (5-15); CALCIUM 7.9 mg/dL (8.4-11.0); CHLORIDE 108 mmol/L (98-107); CREATININE 0.66 mg/dL (0.55-1.30); GLUCOSE 102 mg/dL (70-99); PHOSPHORUS 3.1 mg/dL (2.7-4.5); SODIUM SERUM 141 mmol/L (136-145); UREA NITROGEN, BLOOD 11 mg/dL (8-21)
[2020-03-22 07:52] VITALS: BP_SYST 154
[2020-03-22] MEDS: CYANOCOBALAMIN 1000 mCg TABLET SL SCH (08:25)
[2020-03-22] MEDS: ASCORBIC ACID 500 MG TABLET PO SCH ×2 (08:25→21:47)
[2020-03-22] MEDS: CHOLECALCIFEROL (VITAMIN D3) 2,000 UNIT TABLET PO SCH ×2 (08:25→21:46)
[2020-03-22] MEDS: DONEPEZIL HCL 5 MG TABLET (ARICEPT) PO SCH ×2 (08:25→21:47)
[2020-03-22] MEDS: ATENOLOL 25 MG TABLET(TENORMIN) PO SCH (08:26)
[2020-03-22] MEDS: ENOXAPARIN SODIUM 40 MG/0.4 ML SYRINGE SUBCUT SCH (08:30)
[2020-03-22] MEDS ORDERED: COMMUNICATION ORDER XX ONE (10:30)
[2020-03-22] MEDS ORDERED: POTASSIUM CHLORIDE 60 MEQ in NS 500 ML IV ONE (11:30)
[2020-03-22 12:16] VITALS: BP_SYST 140
[2020-03-22] MEDS: 0.45% NACL 1,000 ML IV SCH (15:39)
[2020-03-22] MEDS: cefTRIAXone 1 GM IVPB PREMIX 50 ML IV SCH (15:40)
[2020-03-22 16:11] VITALS: BP_SYST 159
[2020-03-22 20:00] VITALS: BP_SYST 153
[2020-03-22] MEDS: TAMSULOSIN HCL 0.4 MG CAP PO SCH (21:46)
[2020-03-22] MEDS: SENNOSIDES 8.6 MG TABLET PO SCH (21:46)
[2020-03-23] VITALS: BP_SYST 135
[2020-03-23 07:50] VITALS: BP_SYST 142
[2020-03-23 07:51] LABS: BASOPHILS % (AUTO) 0.7 % (0.0-2.0); EOSINOPHILS # (AUTO) 0.3 K/uL (0.0-0.4); EOSINOPHILS % (AUTO) 4.8 % (0.0-4.0); HEMATOCRIT 38.6 % (36-54); LYMPHOCYTES # (AUTO) 1.5 K/uL (1.0-5.5); LYMPHOCYTES % (AUTO) 20.2 % (20.5-51.5); MEAN CORPUSCULAR HEMOGLOBIN 30 pg (27-31); MEAN CORPUSCULAR HGB CONC 34 % (32-36); MEAN CORPUSCULAR VOLUME 89 fL (79.0-98.0); MONOCYTES # (AUTO) 0.6 K/uL (0.0-1.0); MONOCYTES % (AUTO) 8.2 % (1.7-9.3); NEUTROPHILS # (AUTO) 4.7 K/uL (1.8-7.7); NEUTROPHILS % (AUTO) 66.1 % (40.0-70.0); PLATELET COUNT (AUTO) 207 K/uL (130-430); RED BLOOD CELL COUNT(AUTO) 4.36 MIL/uL (4.2-6.2); RED CELL DISTRIBUTION WIDTH 14.1 % (9.0-15.0); WHITE BLOOD COUNT (AUTO) 7.2 K/uL (4.8-10.8)
[2020-03-23 08:07] LABS: ANION GAP 7 (5-15); CALCIUM 8.2 mg/dL (8.4-11.0); CHLORIDE 108 mmol/L (98-107); CREATININE 0.66 mg/dL (0.55-1.30); GLUCOSE 95 mg/dL (70-99); POTASSIUM 3.5 mmol/L (3.5-5.1); SODIUM SERUM 141 mmol/L (136-145); UREA NITROGEN, BLOOD 7 mg/dL (8-21)
[2020-03-23] MEDS: DONEPEZIL HCL 5 MG TABLET (ARICEPT) PO SCH (08:53)
[2020-03-23] MEDS: CHOLECALCIFEROL (VITAMIN D3) 2,000 UNIT TABLET PO SCH (08:53)
[2020-03-23] MEDS: ASCORBIC ACID 500 MG TABLET PO SCH (08:53)
[2020-03-23] MEDS: CYANOCOBALAMIN 1000 mCg TABLET SL SCH (08:53)
[2020-03-23] MEDS: ATENOLOL 25 MG TABLET(TENORMIN) PO SCH (08:54)
[2020-03-23] MEDS: ENOXAPARIN SODIUM 40 MG/0.4 ML SYRINGE SUBCUT SCH (08:56)
[2020-03-23 09:19] VITALS: BP_SYST 142
== END 2020-03-23 10:46 | DRG 871 ==
LOC: SED 15:31 → SMU 18:13
PROVIDERS: ADMIT Internal Medicine; ATTEND Internal Medicine
DX: A41.9 Sepsis, unspecified organism (principal); G93.41 Metabolic encephalopathy; J18.9 Pneumonia, unspecified organism; G81.94 Hemiplegia, unspecified affecting left nondominant side; N17.9 Acute kidney failure, unspecified; G30.9 Alzheimer's disease, unspecified; Z20.828 Contact with and (suspected) exposure to other viral communicable diseases; F02.80 Dementia in other diseases classified elsewhere, unspecified severity, without behavioral disturbance, psychotic disturbance, mood disturbance, and anxiety; N40.0 Benign prostatic hyperplasia without lower urinary tract symptoms; N18.9 Chronic kidney disease, unspecified; I12.9 Hypertensive chronic kidney disease with stage 1 through stage 4 chronic kidney disease, or unspecified chronic kidney disease; Z79.899 Other long term (current) drug therapy
CPT/HCPCS: 36415; 71045; 80048; 80053; 81000-TC; 83605; 83735-TC; 83880; 84100-TC; 84484; 85025; 87040-TC; 87081; 87086; 93005; 96361; 96365; 99285; J0456; J0696; J1650; J3480; J7040; J7050; J7060; U0003-CS

== ENCOUNTER 2023-04-24 09:49 | Inpatient (IN) | payer OTHER, BC ==
[~2023-04-24] VITALS: Ht 167.6 cm; Wt 78.5 kg
[~2023-04-24 09:49] MED LIST changes: +ASCO500T10 PO; +CYAN100020 SL; +MEMA28CA16 PO; -MEMA28CA5 PO; +SENN8.6T19 PO; +VITD2000 PO; +ZINC220T4 PO
[2023-04-24 09:55] VITALS: BP_SYST 122; PULSE 67; RESP 22; TEMP 98.3; O2SAT 100
[2023-04-24] MEDS ORDERED: LORazepam 2 MG/ML VIAL IVP ONE (10:15)
[2023-04-24 10:34] LABS: BASOPHILS % (AUTO) 0.4 % (0.0-2.0); EOSINOPHILS # (AUTO) 0.5 K/uL (0.0-0.4); HEMATOCRIT 44.9 % (36-54); HEMOGLOBIN 14.6 g/dL (14.0-18.0); LYMPHOCYTES # (AUTO) 1.7 K/uL (1.0-5.5); LYMPHOCYTES % (AUTO) 14.4 % (20.5-51.5); MEAN CORPUSCULAR HEMOGLOBIN 29 pg (27-31); MEAN CORPUSCULAR HGB CONC 32 % (32-36); MEAN CORPUSCULAR VOLUME 91 fL (79.0-98.0); MONOCYTES # (AUTO) 0.5 K/uL (0.0-1.0); MONOCYTES % (AUTO) 4.5 % (1.7-9.3); NEUTROPHILS # (AUTO) 9.1 K/uL (1.8-7.7); NEUTROPHILS % (AUTO) 76.7 % (40.0-70.0); PLATELET COUNT (AUTO) 147 K/uL (130-430); RED BLOOD CELL COUNT(AUTO) 4.96 MIL/uL (4.2-6.2); RED CELL DISTRIBUTION WIDTH 14.8 % (9.0-15.0); WHITE BLOOD COUNT (AUTO) 11.8 K/uL (4.8-10.8)
[2023-04-24 10:39] LABS: ANION GAP 8 (5-15); CALCIUM 8.6 mg/dL (8.4-11.0); CARBON DIOXIDE 29 mmol/L (23-29); CHLORIDE 103 mmol/L (98-107); CREATININE 1.06 mg/dL (0.55-1.30); GLUCOSE 232 mg/dL (74-106); POTASSIUM 3.5 mmol/L (3.5-5.1); SODIUM SERUM 140 mmol/L (136-145); UREA NITROGEN, BLOOD 22 mg/dL (8-21)
[2023-04-24 10:44] LABS: ALANINE AMINOTRANSFERASE 27 U/L (12-78); ALBUMIN 2.7 g/dL (3.4-4.8); ASPARTATE AMINOTRANSFERASE 13 U/L (10-37); TOTAL BILIRUBIN 0.7 mg/dL (0.0-1.0); TOTAL PROTEIN, SERUM 6.1 g/dL (6.4-8.3)
[2023-04-24] MEDS ORDERED: cefTRIAXone 1 GM in D5W 50 ML IV ONE (11:00)
[2023-04-24] MEDS ORDERED: NACL 0.9% 1,000 ML IV ONE (11:00)
[2023-04-24] MEDS ORDERED: cefTRIAXone 1 GM VIAL ONE (11:07)
[2023-04-24 11:30] LABS: BILIRUBIN,URINE NEGATIVE (NEGATIVE); BLOOD, URINE NEGATIVE (NEGATIVE); CLARITY/URINE CLEAR (CLEAR); COLOR,URINE YELLOW (YELLOW); GLUCOSE,URINE 1+ (NEGATIVE); KETONES,URINE NEGATIVE (NEGATIVE); LEUKOCYTE ESTERASE ,URINE NEGATIVE (NEGATIVE); NITRITE, URINE NEGATIVE (NEGATIVE); PROTEIN URINE 1+ (NEGATIVE); UROBILINOGEN,URINE 0.2 (0.2-1.0)
[2023-04-24 11:34] LABS: COVID19 ANTIGEN SOFIA FIA NEGATIVE (NEGATIVE)
[2023-04-24 11:38] LABS: INFLUENZA TYPE A Negative (NEGATIVE); INFLUENZA TYPE B NEGATIVE (NEGATIVE)
[2023-04-24 11:45] LABS: BACTERIA,URINE None Seen /HPF (None Seen); RBC,URINE 0-3 /HPF (0-3); WBC,URINE 0-3 /HPF (0-3)
[2023-04-24] MEDS ORDERED: cefTRIAXone 1 GM VIAL IM ONE (13:30)
[2023-04-24] MEDS ORDERED: D5/0.45 NS 1,000 ML IV ONE (13:30)
[2023-04-24 16:56] VITALS: BP_SYST 138; PULSE 66; RESP 15; TEMP 97.5; O2SAT 95
[2023-04-24] MEDS ORDERED: NALOXONE HCL 0.4 MG/ML AMP (NARCAN) IVP PRN (19:30)
[2023-04-24] MEDS ORDERED: ACETAMINOPHEN 325 MG TABLET PO PRN (19:30)
[2023-04-24] MEDS ORDERED: LORazepam 2 MG/ML VIAL IVP PRN (19:30)
[2023-04-24] MEDS ORDERED: MORPHINE 2 MG/ML INJ. SYRINGE IVP PRN (19:30)
[2023-04-24] MEDS ORDERED: ONDANSETRON HCL 4 MG/2 ML VIAL IVP PRN (19:30)
[2023-04-24 20:00] VITALS: BP_SYST 127; PULSE 84; RESP 18; TEMP 98.4; O2SAT 99
[2023-04-25] VITALS (10 sets, daily range): BP systolic 141–167; PULSE 65–82; RESP 19–20; TEMP 97.3–99.2; O2SAT 94–100
[2023-04-25] MEDS: cefTRIAXone 1 GM in D5W 50 ML IV SCH (10:41)
[2023-04-25] MEDS ORDERED: ASCORBIC ACID 500 MG TABLET PO ONE (10:45)
[2023-04-25] MEDS ORDERED: CYANOCOBALAMIN (VITAMIN B-12) 1,000 MCG TABLET PO ONE (10:45)
[2023-04-25] MEDS ORDERED: CHOLECALCIFEROL (VITAMIN D3) 2,000 UNIT TABLET PO ONE (10:45)
[2023-04-25] MEDS ORDERED: ATENOLOL 25 MG TABLET(TENORMIN) PO ONE (11:00)
[2023-04-25] MEDS ORDERED: FUROSEMIDE 20 MG TABLET PO ONE (11:00)
[2023-04-25] MEDS ORDERED: MEMANTINE HCL 5 MG TABLET PO ONE (11:00)
[2023-04-25 12:18] LABS: BASOPHILS # (AUTO) 0.1 K/uL (0.0-0.2); BASOPHILS % (AUTO) 0.7 % (0.0-2.0); EOSINOPHILS # (AUTO) 0.7 K/uL (0.0-0.4); HEMATOCRIT 42.8 % (36-54); HEMOGLOBIN 14.1 g/dL (14.0-18.0); LYMPHOCYTES # (AUTO) 1.5 K/uL (1.0-5.5); LYMPHOCYTES % (AUTO) 17.1 % (20.5-51.5); MEAN CORPUSCULAR HEMOGLOBIN 30 pg (27-31); MEAN CORPUSCULAR HGB CONC 33 % (32-36); MEAN CORPUSCULAR VOLUME 90 fL (79.0-98.0); MONOCYTES # (AUTO) 0.6 K/uL (0.0-1.0); NEUTROPHILS # (AUTO) 5.9 K/uL (1.8-7.7); NEUTROPHILS % (AUTO) 67.2 % (40.0-70.0); PLATELET COUNT (AUTO) 147 K/uL (130-430); RED BLOOD CELL COUNT(AUTO) 4.74 MIL/uL (4.2-6.2); RED CELL DISTRIBUTION WIDTH 14.5 % (9.0-15.0); WHITE BLOOD COUNT (AUTO) 8.7 K/uL (4.8-10.8)
[2023-04-25 12:34] LABS: ANION GAP 5 (5-15); CALCIUM 8.4 mg/dL (8.4-11.0); CARBON DIOXIDE 30 mmol/L (23-29); CHLORIDE 106 mmol/L (98-107); GLUCOSE 137 mg/dL (74-106); POTASSIUM 4.1 mmol/L (3.5-5.1); SODIUM SERUM 141 mmol/L (136-145); UREA NITROGEN, BLOOD 14 mg/dL (8-21)
[2023-04-25 12:39] LABS: ALANINE AMINOTRANSFERASE 26 U/L (12-78); ALBUMIN 2.7 g/dL (3.4-4.8); ASPARTATE AMINOTRANSFERASE 16 U/L (10-37); TOTAL BILIRUBIN 0.6 mg/dL (0.0-1.0)
[2023-04-25] MEDS: IPRATROPIUM/ALBUTEROL SULFATE 3 ML AMPUL.NEB (DUONEB) INH SCH ×2 (13:23→20:26)
[2023-04-25] MEDS: AZITHROMYCIN 500 MG in NS 250 ML IV SCH (20:56)
[2023-04-25] MEDS: CHOLECALCIFEROL (VITAMIN D3) 2,000 UNIT TABLET PO SCH (21:16)
[2023-04-25] MEDS: DONEPEZIL HCL 5 MG TABLET (ARICEPT) PO SCH (21:17)
[2023-04-25] MEDS: SENNOSIDES 8.6 MG TABLET PO SCH (21:18)
[2023-04-25] MEDS: ASCORBIC ACID 500 MG TABLET PO SCH (21:18)
[2023-04-25] MEDS: MEMANTINE HCL 5 MG TABLET PO SCH (21:18)
[2023-04-25] MEDS: TAMSULOSIN HCL 0.4 MG CAP PO SCH (21:18)
[2023-04-26] VITALS (9 sets, daily range): BP systolic 134–155; PULSE 60–94; RESP 18–20; TEMP 98.1–99; O2SAT 95–98
[2023-04-26] MEDS: IPRATROPIUM/ALBUTEROL SULFATE 3 ML AMPUL.NEB (DUONEB) INH SCH ×4 (01:40→19:23)
[2023-04-26 07:16] LABS: BASOPHILS # (AUTO) 0.1 K/uL (0.0-0.2); BASOPHILS % (AUTO) 0.8 % (0.0-2.0); EOSINOPHILS # (AUTO) 0.6 K/uL (0.0-0.4); EOSINOPHILS % (AUTO) 8.3 % (0.0-4.0); HEMATOCRIT 42.7 % (36-54); LYMPHOCYTES # (AUTO) 1.7 K/uL (1.0-5.5); LYMPHOCYTES % (AUTO) 22.6 % (20.5-51.5); MEAN CORPUSCULAR HEMOGLOBIN 29 pg (27-31); MEAN CORPUSCULAR HGB CONC 33 % (32-36); MEAN CORPUSCULAR VOLUME 90 fL (79.0-98.0); MONOCYTES # (AUTO) 0.6 K/uL (0.0-1.0); MONOCYTES % (AUTO) 8.6 % (1.7-9.3); NEUTROPHILS # (AUTO) 4.5 K/uL (1.8-7.7); NEUTROPHILS % (AUTO) 59.7 % (40.0-70.0); PLATELET COUNT (AUTO) 145 K/uL (130-430); RED BLOOD CELL COUNT(AUTO) 4.75 MIL/uL (4.2-6.2); RED CELL DISTRIBUTION WIDTH 14.2 % (9.0-15.0); WHITE BLOOD COUNT (AUTO) 7.6 K/uL (4.8-10.8)
[2023-04-26 07:29] LABS: ANION GAP 9 (5-15); CALCIUM 8.4 mg/dL (8.4-11.0); CARBON DIOXIDE 27 mmol/L (23-29); CHLORIDE 105 mmol/L (98-107); CREATININE 0.84 mg/dL (0.55-1.30); GLUCOSE 107 mg/dL (74-106); POTASSIUM 3.8 mmol/L (3.5-5.1); SODIUM SERUM 141 mmol/L (136-145); UREA NITROGEN, BLOOD 13 mg/dL (8-21)
[2023-04-26] MEDS: MEMANTINE HCL 5 MG TABLET PO SCH ×2 (08:56→20:25)
[2023-04-26] MEDS: ATENOLOL 25 MG TABLET(TENORMIN) PO SCH (08:57)
[2023-04-26] MEDS: FUROSEMIDE 20 MG TABLET PO SCH (08:57)
[2023-04-26] MEDS: CYANOCOBALAMIN (VITAMIN B-12) 1,000 MCG TABLET PO SCH (08:58)
[2023-04-26] MEDS: ASCORBIC ACID 500 MG TABLET PO SCH ×2 (08:58→20:25)
[2023-04-26] MEDS: CHOLECALCIFEROL (VITAMIN D3) 2,000 UNIT TABLET PO SCH ×2 (08:58→20:26)
[2023-04-26] MEDS ORDERED: DONEPEZIL HCL 5 MG TABLET (ARICEPT) PO SCH (09:00)
[2023-04-26] MEDS: cefTRIAXone 1 GM in D5W 50 ML IV SCH (11:58)
[2023-04-26] MEDS: TAMSULOSIN HCL 0.4 MG CAP PO SCH (20:25)
[2023-04-26] MEDS: SENNOSIDES 8.6 MG TABLET PO SCH (20:25)
[2023-04-26] MEDS: DONEPEZIL HCL 5 MG TABLET (ARICEPT) PO SCH (20:25)
[2023-04-26] MEDS: AZITHROMYCIN 500 MG in NS 250 ML IV SCH (21:43)
[2023-04-27] VITALS (8 sets, daily range): BP systolic 98–145; PULSE 90–113; RESP 18–20; TEMP 97.6–98.8; O2SAT 92–97
[2023-04-27] MEDS: IPRATROPIUM/ALBUTEROL SULFATE 3 ML AMPUL.NEB (DUONEB) INH SCH ×3 (01:53→13:43)
[2023-04-27 05:46] LABS: BASOPHILS % (AUTO) 0.6 % (0.0-2.0); EOSINOPHILS # (AUTO) 0.4 K/uL (0.0-0.4); EOSINOPHILS % (AUTO) 4.5 % (0.0-4.0); HEMATOCRIT 43.9 % (36-54); HEMOGLOBIN 14.4 g/dL (14.0-18.0); LYMPHOCYTES # (AUTO) 1.2 K/uL (1.0-5.5); LYMPHOCYTES % (AUTO) 15.1 % (20.5-51.5); MEAN CORPUSCULAR HEMOGLOBIN 29 pg (27-31); MEAN CORPUSCULAR HGB CONC 33 % (32-36); MEAN CORPUSCULAR VOLUME 89 fL (79.0-98.0); MONOCYTES # (AUTO) 0.7 K/uL (0.0-1.0); MONOCYTES % (AUTO) 8.3 % (1.7-9.3); NEUTROPHILS # (AUTO) 5.9 K/uL (1.8-7.7); NEUTROPHILS % (AUTO) 71.5 % (40.0-70.0); PLATELET COUNT (AUTO) 168 K/uL (130-430); RED BLOOD CELL COUNT(AUTO) 4.92 MIL/uL (4.2-6.2); RED CELL DISTRIBUTION WIDTH 14.5 % (9.0-15.0); WHITE BLOOD COUNT (AUTO) 8.2 K/uL (4.8-10.8)
[2023-04-27 06:26] LABS: ANION GAP 10 (5-15); CALCIUM 8.9 mg/dL (8.4-11.0); CARBON DIOXIDE 27 mmol/L (23-29); CHLORIDE 104 mmol/L (98-107); CREATININE 0.97 mg/dL (0.55-1.30); GLUCOSE 127 mg/dL (74-106); POTASSIUM 3.5 mmol/L (3.5-5.1); SODIUM SERUM 141 mmol/L (136-145); UREA NITROGEN, BLOOD 15 mg/dL (8-21)
[2023-04-27] MEDS: ATENOLOL 25 MG TABLET(TENORMIN) PO SCH (09:00)
[2023-04-27] MEDS: FUROSEMIDE 20 MG TABLET PO SCH (09:00)
[2023-04-27] MEDS: ASCORBIC ACID 500 MG TABLET PO SCH (09:47)
[2023-04-27] MEDS: MEMANTINE HCL 5 MG TABLET PO SCH (09:47)
[2023-04-27] MEDS: CHOLECALCIFEROL (VITAMIN D3) 2,000 UNIT TABLET PO SCH (09:48)
[2023-04-27] MEDS: CYANOCOBALAMIN (VITAMIN B-12) 1,000 MCG TABLET PO SCH (09:49)
[2023-04-27] MEDS: cefTRIAXone 1 GM in D5W 50 ML IV SCH (11:58)
[2023-04-27] MEDS ORDERED: AMOX-423 PO (12:02)
[2023-04-27] MEDS ORDERED: TAMSULOSIN HCL 0.4 MG CAP PO SCH (21:00)
[2023-04-27] MEDS ORDERED: AMOXICILLIN/CLAVULANATE POTASSIUM 500 MG TABLET PO SCH (21:00)
[2023-04-28] MEDS ORDERED: ATENOLOL 25 MG TABLET(TENORMIN) PO SCH (09:00)
[2023-04-28] MEDS ORDERED: FUROSEMIDE 20 MG TABLET PO SCH (09:00)
== END 2023-04-27 15:00 | DRG 177 ==
LOC: SED 09:49 → SMU 13:21
PROVIDERS: ADMIT Internal Medicine; ATTEND Internal Medicine
DX: J69.0 Pneumonitis due to inhalation of food and vomit (principal); E43 Unspecified severe protein-calorie malnutrition; J96.01 Acute respiratory failure with hypoxia; N40.0 Benign prostatic hyperplasia without lower urinary tract symptoms; F03.90 Unspecified dementia, unspecified severity, without behavioral disturbance, psychotic disturbance, mood disturbance, and anxiety; R26.9 Unspecified abnormalities of gait and mobility; Z20.822 Contact with and (suspected) exposure to COVID-19; R13.10 Dysphagia, unspecified; I10 Essential (primary) hypertension; Z68.27 Body mass index [BMI] 27.0-27.9, adult
CPT/HCPCS: 36415; 71045; 80048; 80053; 81000; 81001; 81003; 81015; 83605; 85025; 87040; 87081; 94640; 94760; 96361; 96365; 96375; 99285; J0456; J0696; J2060; J7050; J7060